=== PATIENT | male | born 1955 | race Caucasian/White ===

== ENCOUNTER 2024-11-07 10:35 | Outpatient (CLI) | payer OTHER, SELFPAY | END 2024-11-07 10:36 | disposition home or self-care (01) | PROVIDERS: Visit Provider Emergency Medicine | DX: Z01.818 Encounter for other preprocedural examination (principal); F10.90 Alcohol use, unspecified, uncomplicated | CPT/HCPCS: 80048; 80076 ==

== ENCOUNTER 2024-11-12 10:54 | Outpatient (CLI) | payer OTHER, SELFPAY ==
--- NOTE | 2024-11-12 11:15 | CRLHL7_ITS ---
For Patients: As a result of the Century Cures Act, medical imaging exams and procedure reports are released immediately into your electronic medical record. You may view this report before your referring provider. If you have questions, please contact your health care provider. Examination: US abdominal aorta Indication: Tobacco use, epigastric pulsating slightly. Abdominal aortic aneurysm screening. Technique: Hammer scale and color Doppler images of the aorta and common iliac arteries are obtained. Comparison: None Findings: Proximal aorta: 2.7 x 2.6 cm Mid aorta: 2.4 x 2.2 cm Distal aorta: 2.1 x 2.2 cm Right common iliac artery: 1.5 x 1.6 cm Left common iliac artery: 1.2 x 1.5 cm Atherosclerotic changes are present Impression: No abdominal aortic aneurysm. Dictated by Carl Torres MD @ 11/12/2024 11:40:09 AM (Electronically Signed)
== END 2024-11-12 10:55 | disposition home or self-care (01) ==
PROVIDERS: PCP Family Medicine; Visit Provider Emergency Medicine
DX: Z13.6 Encounter for screening for cardiovascular disorders (principal); Z72.0 Tobacco use
CPT/HCPCS: 76706

== ENCOUNTER 2025-07-02 16:12 | Outpatient (CLI) | payer MEDICARE, SELFPAY | END 2025-07-02 16:13 | disposition home or self-care (01) | LOC: NFLDREF 07-08 20:35 | PROVIDERS: PCP Family Medicine; Referring Provider Family Medicine; Visit Provider Family Medicine | DX: F32.A Depression, unspecified (principal); Z13.21 Encounter for screening for nutritional disorder; Z13.6 Encounter for screening for cardiovascular disorders; Z12.5 Encounter for screening for malignant neoplasm of prostate | CPT/HCPCS: 80061; 82607; 84443; G0103 ==